=== PATIENT | female | born 1955 | race Caucasian/White ===

== ENCOUNTER 2018-04-06 06:05 | Emergency (ER) | payer OTHER ==
[2018-04-06 07:16] LABS: ADD UMIC YES; UR ASCORBIC ACID NEGATIVE (NEGATIVE); UR BACTERIA FEW /HPF (NONE SEEN); UR BILIRUBIN (Dip) NEGATIVE (NEGATIVE); UR BLOOD (Dip) 1+ mg/dL (NEGATIVE); UR CLARITY CLOUDY (CLEAR); UR COLOR YELLOW (YELLOW); UR GLUCOSE (Dip) NEGATIVE (NEGATIVE); UR KETONES (Dip) NEGATIVE (NEGATIVE); UR LEUKOCYTE ESTERASE (Dip) 3+ Leu/ul (NEGATIVE); UR NITRITE (Dip) POSITIVE (NEGATIVE); UR RBC 5 /HPF (0-5); UR SPECIFIC GRAVITY (Dip) 1.011 (1.003-1.030); UR TOTAL PROTEIN (Dip) NEGATIVE (NEGATIVE); UR UROBILINOGEN (Dip) NEGATIVE (NEGATIVE); UR WBC > 182 /HPF (0-5)
[2018-04-06] MEDS: LEVOFLOXACIN 750 MG TABLET PO (07:41)
== END 2018-04-06 08:31 | disposition home or self-care (01) ==
LOC: E/R 06:05
DX: N30.00 Acute cystitis without hematuria (principal); J40 Bronchitis, not specified as acute or chronic; R40.2142 Coma scale, eyes open, spontaneous, at arrival to emergency department; R40.2252 Coma scale, best verbal response, oriented, at arrival to emergency department; R40.2362 Coma scale, best motor response, obeys commands, at arrival to emergency department; F17.210 Nicotine dependence, cigarettes, uncomplicated
CPT/HCPCS: 71045; 81001; 99284-25

== ENCOUNTER 2018-04-09 06:42 | Emergency (ER) | payer OTHER | END 2018-04-09 07:14 | disposition home or self-care (01) | LOC: FTE 06:42 | DX: R21 Rash and other nonspecific skin eruption (principal); F17.210 Nicotine dependence, cigarettes, uncomplicated | CPT/HCPCS: 99283; Z7502 ==

== ENCOUNTER 2018-04-15 19:25 | Emergency (ER) | payer SELFPAY, OTHER | END 2018-04-15 20:00 | disposition left against medical advice (07) | LOC: FTE 19:25 | DX: Z53.21 Procedure and treatment not carried out due to patient leaving prior to being seen by health care provider (principal) ==

== ENCOUNTER 2018-04-16 12:38 | Emergency (ER) | payer OTHER | END 2018-04-16 16:47 | disposition home or self-care (01) | LOC: E/R 12:38 | DX: Z76.0 Encounter for issue of repeat prescription (principal); Z87.891 Personal history of nicotine dependence | CPT/HCPCS: 99281; Z7502 ==